=== PATIENT | male | born 1960 | race Two or more races ===

== ENCOUNTER 2022-10-08 22:01 | Observation (INO) | payer OTHER ==
[2022-10-08] MEDS ORDERED: SODIUM CHLORIDE 1,000 ML IV ONE (22:46)
[2022-10-08 23:42] LABS: VENOUS BASE EXCESS 0.6 mmol/L (-2-2); VENOUS O2 SATURATION 94.5 % (70-80); VENOUS PCO2 42.9 mmHg (38-52); VENOUS PH 7.396 (7.310-7.410)
[2022-10-08 23:50] LABS: BASO % 0.6 % (0-2.0); EOS % 0.8 % (0-4.5); HEMATOCRIT 43.1 % (35.4-49); MCH 30.7 pg (25.7-33.7); MCHC 34.7 g/dl (32.0-35.9); MEAN CELL VOLUME 88.3 fl (80-96); MEAN PLT VOLUME 9.6 fl (7.5-11.1); MONO % 9.7 % (3.8-10.2); NEUT % 66.9 % (42.8-82.8); PLATELET COUNT 267 10^3/uL (134-434); RBC 4.88 M/mm3 (4.00-5.60); RDW 13.3 % (11.9-15.9); WHITE BLOOD COUNT 10.3 K/mm3 (4.0-10.0)
[2022-10-08 23:52] LABS: EPI CELLS 4 /uL (0-25.1); HYALINE CASTS 0 /uL (0-3.1); PH,URINE 7.5 (5.0-8.0); URINE APPEARANCE CLEAR; URINE BACTERIA 56 /uL (0-1359); URINE BILIRUBIN NEGATIVE (NEGATIVE); URINE COLOR YELLOW; URINE GLUCOSE (UA) 3+ (NEGATIVE); URINE KETONE 1+ (NEGATIVE); URINE LEUK ESTERASE NEGATIVE (NEGATIVE); URINE NITRITE NEGATIVE (NEGATIVE); URINE PROTEIN NEGATIVE (NEGATIVE); URINE RBC 31 /uL (0-23.9); URINE UROBILINOGEN 0.2 mg/dL (0.2-1.0); URINE WBC 2 /uL (0-25.8)
[2022-10-09 00:14] LABS: CHLORIDE 106 mmol/L (98-107); POTASSIUM 3.6 mmol/L (3.5-5.1); SODIUM 142 mmol/L (136-145)
[2022-10-09 00:16] LABS: ALBUMIN 4.2 g/dl (3.4-5.0); ANION GAP 8 MMOL/L (8-16); BLOOD UREA NITROGEN 20.8 mg/dL (7-18); CALCIUM 10.1 mg/dL (8.5-10.1); CO2 27 mmol/L (21-32); MAGNESIUM 2.1 mg/dL (1.8-2.4)
[2022-10-09 00:21] LABS: TOT PROT 7.9 g/dl (6.4-8.2)
[2022-10-09 00:22] LABS: ALK PHOS 119 U/L (45-117)
[2022-10-09 00:27] LABS: BILIRUBIN,TOTAL 0.8 mg/dL (0.2-1)
[2022-10-09 00:30] LABS: SGOT/AST 18 U/L (15-37); SGPT/ALT 47 U/L (13-61)
[2022-10-09 00:47] LABS: GLUCOSE,RANDOM 487 mg/dL (74-106)
[2022-10-09] MEDS ORDERED: SODIUM CHLORIDE 1,000 ML IV STA (05:50)
[2022-10-09 06:53] LABS: HEMATOCRIT 40.3 % (35.4-49); HEMOGLOBIN 13.6 GM/dL (11.7-16.9); MCH 30.5 pg (25.7-33.7); MCHC 33.7 g/dl (32.0-35.9); MEAN CELL VOLUME 90.2 fl (80-96); MEAN PLT VOLUME 9.8 fl (7.5-11.1); PLATELET COUNT 246 10^3/uL (134-434); RBC 4.47 M/mm3 (4.00-5.60); WHITE BLOOD COUNT 10.5 K/mm3 (4.0-10.0)
[2022-10-09 07:15] LABS: POTASSIUM 3.4 mmol/L (3.5-5.1)
[2022-10-09 07:18] LABS: ALBUMIN 3.6 g/dl (3.4-5.0); BLOOD UREA NITROGEN 13.5 mg/dL (7-18)
[2022-10-09 07:21] LABS: PHOSPHOROUS 3.2 mg/dL (2.5-4.9)
[2022-10-09 07:22] LABS: TOT PROT 6.7 g/dl (6.4-8.2)
[2022-10-09 07:23] LABS: BILIRUBIN,TOTAL 0.9 mg/dL (0.2-1)
[2022-10-09] MEDS: INSULIN SLIDING SCALE (NOVOLOG) 1 VIAL SQ SCH ×4 (07:33→21:43)
[2022-10-09] MEDS ORDERED: INSULIN (LEVEMIR) 100 UNITS/ML UNITS SQ SCH ×7 (07:54→22:00)
[2022-10-09 08:16] LABS: CREATININE 0.8 mg/dL (0.55-1.3)
[2022-10-09 08:17] LABS: CALCIUM 8.3 mg/dL (8.5-10.1)
[2022-10-09] MEDS ORDERED: amLODIPine BESYLATE 10 MG TABLET (FP) ONE (08:25)
[2022-10-09] MEDS ORDERED: TAMSULOSIN HCL 0.4 MG CAP ONE (08:26)
[2022-10-09] MEDS ORDERED: ENOXAPARIN NA (PORCINE) 40 MG/0.4 ML DISP.SYRIN SQ ONE (08:26)
[2022-10-09] MEDS ORDERED: INSULIN (LEVEMIR) 100 UNITS/ML UNITS SQ ONE ×2 (08:27→21:46)
[2022-10-09] MEDS: TAMSULOSIN HCL 0.4 MG CAP PO SCH (08:34)
[2022-10-09] MEDS: amLODIPine BESYLATE 10 MG TABLET (FP) PO SCH (09:24)
[2022-10-09] MEDS: ENOXAPARIN NA (PORCINE) 40 MG/0.4 ML DISP.SYRIN SQ SCH (09:24)
[2022-10-09] MEDS: FINASTERIDE 5 MG TABLET (FP) PO SCH (09:27)
[2022-10-09] MEDS ORDERED: SODIUM CHLORIDE 1,000 ML IV SCH (11:45)
[2022-10-09] MEDS ORDERED: POTASSIUM CHLORIDE ORAL LIQUID 20 MEQ/15 ML PO ONE (18:39)
[2022-10-09] MEDS ORDERED: POTASSIUM CHLORIDE ORAL LIQUID 20 MEQ/15 ML ONE (18:56)
[2022-10-09] MEDS: SODIUM CHLORIDE 1,000 ML IV SCH (18:57)
[2022-10-09] MEDS ORDERED: ATORVASTATIN CA 10 MG TABLET (FP) PO SCH (22:00)
[2022-10-10] MEDS: INSULIN SLIDING SCALE (NOVOLOG) 1 VIAL SQ SCH ×4 (06:47→16:57)
[2022-10-10] MEDS ORDERED: INSULIN (LEVEMIR) 100 UNITS/ML UNITS SQ SCH ×2 (07:04→12:04)
[2022-10-10] MEDS: TAMSULOSIN HCL 0.4 MG CAP PO SCH (08:41)
[2022-10-10] MEDS: SODIUM CHLORIDE 1,000 ML IV SCH (09:06)
[2022-10-10] MEDS: ENOXAPARIN NA (PORCINE) 40 MG/0.4 ML DISP.SYRIN SQ SCH (09:41)
[2022-10-10] MEDS: amLODIPine BESYLATE 10 MG TABLET (FP) PO SCH (09:41)
[2022-10-10] MEDS: FINASTERIDE 5 MG TABLET (FP) PO SCH (09:41)
[2022-10-10 10:09] LABS: HEMATOCRIT 41.7 % (35.4-49); HEMOGLOBIN 14.2 GM/dL (11.7-16.9); MCH 30.5 pg (25.7-33.7); MCHC 34.1 g/dl (32.0-35.9); MEAN CELL VOLUME 89.7 fl (80-96); MEAN PLT VOLUME 10.1 fl (7.5-11.1); PLATELET COUNT 267 10^3/uL (134-434); RBC 4.65 M/mm3 (4.00-5.60); RDW 13.1 % (11.9-15.9); WHITE BLOOD COUNT 9.4 K/mm3 (4.0-10.0)
[2022-10-10 10:34] LABS: POTASSIUM 3.3 mmol/L (3.5-5.1)
[2022-10-10 10:38] LABS: ALBUMIN 3.7 g/dl (3.4-5.0); BLOOD UREA NITROGEN 8.5 mg/dL (7-18); CALCIUM 8.7 mg/dL (8.5-10.1)
[2022-10-10 10:39] LABS: MAGNESIUM 2.1 mg/dL (1.8-2.4)
[2022-10-10 10:41] LABS: PHOSPHOROUS 2.5 mg/dL (2.5-4.9)
[2022-10-10 10:42] LABS: CREATININE 0.7 mg/dL (0.55-1.3)
[2022-10-10 10:43] LABS: TOT PROT 6.6 g/dl (6.4-8.2)
[2022-10-10 10:52] LABS: BILIRUBIN,TOTAL 1.2 mg/dL (0.2-1)
[2022-10-10 10:56] VITALS: RESP 18
[2022-10-10] MEDS ORDERED: POTASSIUM CHLORIDE TABS 20 MEQ TABLET.ER (FP) PO ONE (11:02)
[2022-10-10 15:18] VITALS: BMI 24.9
[2022-10-10 18:16] VITALS: BP 153/87; PULSE 96; TEMP 98.5
== END 2022-10-10 18:44 | disposition home or self-care (01) ==
LOC: JER 22:01 → JERBED 10-09 02:27 → J5S 10-09 23:04
PROVIDERS: ADMIT Student in an Organized Health Care Education/Training Program
PROC: 3E023GC Introduction of Other Therapeutic Substance into Muscle, Percutaneous Approach (ICD-10-PCS; principal; 2022-10-09)
PROC: 3E013VG Introduction of Insulin into Subcutaneous Tissue, Percutaneous Approach (ICD-10-PCS; 2022-10-09)
PROC: 3E0337Z Introduction of Electrolytic and Water Balance Substance into Peripheral Vein, Percutaneous Approach (ICD-10-PCS; 2022-10-09)
DX: E11.9 Type 2 diabetes mellitus without complications (principal); R35.0 Frequency of micturition; E78.5 Hyperlipidemia, unspecified; I10 Essential (primary) hypertension; R63.1 Polydipsia; N40.0 Benign prostatic hyperplasia without lower urinary tract symptoms; R00.0 Tachycardia, unspecified; R63.0 Anorexia
CPT/HCPCS: 36415; 71045-TC-FY; 80053; 80061; 81003; 82010; 82803; 82962; 83036; 83605; 83735; 84100; 84439; 84443; 84484; 85025; 85027; 93005; 93010; 96360; 96361; 96372; 99291; G0378

== ENCOUNTER 2023-07-14 23:02 | Emergency (ER) | payer OTHER ==
[2023-07-14 23:09] VITALS: BP 182/91; PULSE 88; RESP 20; TEMP 98.1; BMI 24.5
== END 2023-07-15 00:31 | disposition home or self-care (01) ==
LOC: JER 23:02
DX: I10 Essential (primary) hypertension (principal)
CPT/HCPCS: 93005; 93010; 99283-25